=== PATIENT | male | born 1990 | race Caucasian/White ===

== ENCOUNTER 2022-01-27 19:20 | Emergency (ER) | payer MEDICAID ==
[~2022-01-27] VITALS: Ht 167.6 cm; Wt 89.8 kg
--- NOTE | 2022-01-27 19:20 | NUR ---
STEPHANIE ALS TO ER BED 4
[2022-01-27] MEDS ORDERED: ALBUTEROL 0.083% 2.5 MG/3 ML NEBU INH ONE (19:30)
[2022-01-27] MEDS ORDERED: methylPREDNISolone SS 125 MG/2 ML VIAL IVP ONE (19:30)
[2022-01-27] MEDS ORDERED: EPINEPHrine 1 MG/ML AMP IM ONE (19:30)
[2022-01-27] MEDS ORDERED: NACL 0.9% 1,000 ML IV ONE (19:30)
[2022-01-27] MEDS ORDERED: IPRATROPIUM 0.02% 0.5 MG/2.5 ML NEBU INH ONE (19:30)
[2022-01-27 19:37] VITALS: BP 132/83
--- NOTE | 2022-01-27 19:41 | NUR ---
pt become SOB after eating food at home, Pt is alert and orinted. pt is on nasl canula 2 L an dsatting at 95. Pt is currently getting breathing treatment
[2022-01-27 20:14] LABS: BASOPHILS # (AUTO) 0.1 K/uL (0.00-0.22); BASOPHILS % (AUTO) 0.5 % (0.0-2.0); EOSINOPHILS # (AUTO) 0.7 K/uL (0-0.4); EOSINOPHILS % (AUTO) 5.1 % (0.0-4.0); HEMATOCRIT 41.5 % (36-52); HEMOGLOBIN 14.1 g/dL (12.0-18.0); LYMPHOCYTES # (AUTO) 5.1 K/uL (2.0-11.5); LYMPHOCYTES % (AUTO) 40.2 % (20.5-51.1); MEAN CORPUSCULAR HEMOGLOBIN 29 pg (27-31); MEAN CORPUSCULAR HGB CONC 34 g/dL (33-37); MEAN CORPUSCULAR VOLUME 85.6 fL (80-94); MONOCYTES # (AUTO) 0.8 K/uL (0.8-1.0); MONOCYTES % (AUTO) 6.1 % (1.7-9.3); NEUTROPHILS # (AUTO) 6.1 K/uL (1.8-7.7); NEUTROPHILS % (AUTO) 48.1 % (42.2-75.2); PLATELET COUNT (AUTO) 292 K/uL (140-450); RED BLOOD CELL COUNT(AUTO) 4.84 MIL/uL (4.20-6.10); RED CELL DISTRIBUTION WIDTH 13.1 % (11.6-13.7); WHITE BLOOD COUNT (AUTO) 12.7 K/uL (4.8-10.8)
--- NOTE | 2022-01-27 20:15 | NUR ---
X-Ray at bedside.
[2022-01-27 20:40] LABS: ALBUMIN 3.7 g/dL (3.4-5.0); ANION GAP 13.3 (8-16); CARBON DIOXIDE 29.4 mmol/L (21-32); POTASSIUM 3.7 mmol/L (3.5-5.1); TOTAL BILIRUBIN 0.2 mg/dL (0.0-1.0)
[2022-01-27] MEDS ORDERED: PRED20TA5 PO (21:34)
[2022-01-27] MEDS ORDERED: EPIN1KIT31 IM (21:34)
[2022-01-27] MEDS ORDERED: ALBU0.0912 IH (21:34)
[2022-01-27 21:55] VITALS: BP 142/75
--- NOTE | 2022-01-27 21:57 | NUR ---
Patient discharged with v/s stable. Written and verbal after care instructions given and explained. Patient verbalized understanding. Ambulatory with steady gait. All questions addressed prior to discharge. Advised to follow up with PMD. pt went home with his belongings.
== END 2022-01-27 21:57 | disposition home or self-care (01) ==
LOC: MED 19:20
DX: R06.02 Shortness of breath (principal); T78.2XXA Anaphylactic shock, unspecified, initial encounter
CPT/HCPCS: 36415; 71045; 80053; 85025; 93005; 94640; 96374; 96375; 99291; J0171; J2930; J7030; J7613; J7644; Q0092

== ENCOUNTER 2022-10-20 09:43 | Emergency (ER) | payer MEDICAID, OTHER ==
[~2022-10-20] VITALS: Ht 167.6 cm; Wt 99.8 kg
[~2022-10-20 09:43] MED LIST: ALBU0.0912 IH; EPIN1KIT31 IM; PRED20TA5 PO
[2022-10-20 10:20] VITALS: BP 129/95; PULSE 89; RESP 20; TEMP 97; O2SAT 98
[2022-10-20] MEDS ORDERED: KETOROLAC 30 MG/ML VIAL IM ONE (12:30)
[2022-10-20] MEDS ORDERED: ACET-10509 PO (12:31)
[2022-10-20] MEDS ORDERED: IBUP-2213 PO (12:31)
== END 2022-10-20 12:43 | disposition home or self-care (01) ==
LOC: MED 09:43
DX: S82.65XA Nondisplaced fracture of lateral malleolus of left fibula, initial encounter for closed fracture (principal); Z79.899 Other long term (current) drug therapy; Z79.1 Long term (current) use of non-steroidal anti-inflammatories (NSAID); X50.1XXA Overexertion from prolonged static or awkward postures, initial encounter; Y93.02 Activity, running; Y92.89 Other specified places as the place of occurrence of the external cause; Y99.8 Other external cause status
CPT/HCPCS: 29515; 73610; 96372; 99283; J1885; Q0092